=== PATIENT | male | born 1960 | race American Indian/Alaskan Native ===

== ENCOUNTER 2017-05-10 16:39 | Emergency (ER) | payer MEDICARE ==
--- NOTE | 2017-05-10 23:35 | Emergency Department Report ---
ED General Adult HPI - General Chief complaint: Shoulder Injury Stated complaint: LEFT SIDE NUMBNESS Time Seen by Provider: 05/10/17 23:17 Source: patient Mode of arrival: Ambulatory Limitations: No Limitations - History of Present Illness Initial comments: Patient reports that he has left facial numbness for 2-3 days. Unable to close his eyes on the left side and also pain in left shoulder 3-4 days. No injury. He said he moved the mattress prior to his pain. Pain is 2 out of 10 and comes and goes and achy. He also noted that he has some facial drooping. Denies any headache, dizziness, nausea or vomiting. Denies any history of stroke. Denies any weakness to extremities. Denies any neck pain or back pain. Patient has a history of hypertension and GERD and his primary care physician is Dr. 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 He denies any chest pain or shortness of breath. Patient is hard of hearing with hearing aid. No medication taken [id number]. MD Complaint: facial droop pain, numbness and shoulder pain Onset/Timin -: days(s) Location: face, left, upper extremity Radiation: non-radiation Severity scale (0 -10): 2 Quality: aching Consistency: intermittent Improves with: immobilization (left shoulder) Worsens with: movement Associated Symptoms: other (left facial numbness, drooping and ability to close left eye.). denies: confusion, chest pain, cough, diaphoresis, fever/chills, headaches, loss of appetite, malaise, nausea/vomiting, rash, seizure, shortness of breath, syncope, weakness Treatments Prior to Arrival: none - Related Data Home Medications Medication Instructions Recorded Confirmed Last Taken Omeprazole [PriLOSEC] 40 mg PO QDAY 04/21/14 06/19/15 04/27/14 10:00 azaTHIOprine 50 mg PO QDAY 06/13/15 06/19/15 3 Weeks Ago ~05/23/15 10MG predniSONE [Deltasone] 10 mg PO QDAY 06/13/15 06/19/15 3 Weeks Ago ~05/23/15 Previous Rx's Medication Instructions Recorded Last Taken Type Warfarin [Coumadin] 10 mg PO QDAY #30 tablet 06/16/15 06/19/15 Rx Metolazone 5 mg PO 2XW #8 tablet 06/26/15 Unknown Rx Potassium Chloride [K-Dur] 20 meq PO QDAY #30 tablet 06/26/15 Unknown Rx Sotalol [Betapace] 80 mg PO Q12HR #60 tablet 06/26/15 Unknown Rx Torsemide [Demadex] 40 mg PO QDAY #30 tab 06/26/15 Unknown Rx Prednisone [predniSONE 5 mg (6-Day 5 mg PO .TAPER 6 Days #1 tab.ds.pk 05/11/17 Unknown Rx Pack, 21 Tabs)] Valacyclovir HCl [Valtrex] 1,000 mg PO Q8H 7 Days #21 tablet 05/11/17 Unknown Rx Allergies Allergy/AdvReac Type Severity Reaction Status Date / Time No Known Allergies Allergy Verified 05/10/17 16:44 ED Review of Systems ROS: Stated complaint: LEFT SIDE NUMBNESS Other details as noted in HPI Comment: All other systems reviewed and negative Constitutional: no symptoms reported ENT: other (facial numbness.). denies: ear pain, throat pain, dental pain, epistaxis, congestion Respiratory: no symptoms reported Cardiovascular: denies: chest pain, palpitations, dyspnea on exertion, edema, syncope, paroxysmal nocturnal dyspnea Gastrointestinal: denies: abdominal pain, nausea, vomiting, diarrhea, constipation, hematemesis, melena, hematochezia Genitourinary: denies: urgency, dysuria Musculoskeletal: arthralgia. denies: back pain, joint swelling, myalgia Skin: denies: rash Neurological: numbness. denies: headache, weakness, paresthesias, confusion, abnormal gait, vertigo ED Past Medical Hx - Past Medical History Previous Medical History?: Yes Hx Hypertension: Yes (FOR 6 YRS, DR. 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[facility]) ) Hx GERD: Yes Hx Liver Disease: No Hx Renal Disease: No Hx Seizures: No Hx Asthma: No Additional medical history: Nonspecific Interstitial pneumonia, pulmonary HTN - Surgical History Past Surgical History?: No - Family History Family history: hypertension - Social History Smoking Status: Never Smoker Substance Use Type: None - Medications Home Medications: Home Medications Medication Instructions Recorded Confirmed Last Taken Type Omeprazole [PriLOSEC] 40 mg PO QDAY 04/21/14 06/19/15 04/27/14 10:00 History azaTHIOprine 50 mg PO QDAY 06/13/15 06/19/15 3 Weeks Ago History ~05/23/15 10MG predniSONE [Deltasone] 10 mg PO QDAY 06/13/15 06/19/15 3 Weeks Ago History ~05/23/15 Warfarin [Coumadin] 10 mg PO QDAY #30 tablet 06/16/15 06/19/15 06/19/15 Rx Metolazone 5 mg PO 2XW #8 tablet 06/26/15 Unknown Rx Potassium Chloride [K-Dur] 20 meq PO QDAY #30 tablet 06/26/15 Unknown Rx Sotalol [Betapace] 80 mg PO Q12HR #60 tablet 06/26/15 Unknown Rx Torsemide [Demadex] 40 mg PO QDAY #30 tab 06/26/15 Unknown Rx Prednisone [predniSONE 5 mg (6-Day 5 mg PO .TAPER 6 Days #1 tab.ds.pk 05/11/17 Unknown Rx Pack, 21 Tabs)] Valacyclovir HCl [Valtrex] 1,000 mg PO Q8H 7 Days #21 tablet 05/11/17 Unknown Rx ED Physical Exam - General Limitations: No Limitations General appearance: alert, in no apparent distress - Head Head exam: Present: atraumatic, normocephalic, normal inspection - Eye Eye exam: Present: normal appearance, PERRL, EOMI, other (patient unable to close left eye). Absent: periorbital swelling, periorbital tenderness Pupils: Present: normal accommodation - Expanded Eye Exam Expanded Eyelids: Normal Inspection: Right (left eyelid, unable to blink.) Pupils: Regular, Round: Bilateral Sclera/Conjunctival: Normal Inspection: Bilateral Anterior chamber: Normal Inspection: Bilateral Posterior chamber: Normal Inspection: Bilateral Visual acuity (R) = 20/: 30 (20/30 both eyes) Visual acuity (L) = 20/: 30 With correction: No - ENT ENT exam: Present: normal orophraynx, mucous membranes moist, TM's normal bilaterally, normal external ear exam, other (decrease in sensation to left face. Decrease in movement to left face) - Neck Neck exam: Present: normal inspection, tenderness, full ROM, other (no C-spine tenderness). Absent: meningismus, lymphadenopathy, thyromegaly - Respiratory Respiratory exam: Present: normal lung sounds bilaterally. Absent: respiratory distress, chest wall tenderness - Cardiovascular Cardiovascular Exam: Present: regular rate, normal rhythm, normal heart sounds. Absent: systolic murmur, diastolic murmur - GI/Abdominal GI/Abdominal exam: Present: soft, normal bowel sounds. Absent: distended, tenderness, guarding, rebound, rigid, organomegaly, mass, bruit, pulsatile mass , hernia - Extremities Exam Extremities exam: Present: normal inspection, full ROM, normal capillary refill , other (no clubbing, cyanosis or edema. +2 pulses all extremities. No neurovascular compromise.bilateral shoulder normal exam. +5 strength in all extremities. No contusion, crepitus or effusion to joints.). Absent: tenderness, pedal edema, joint swelling, calf tenderness - Back Exam Back exam: Present: normal inspection, full ROM, other (ambulates without any difficulties). Absent: tenderness, CVA tenderness (R), CVA tenderness (L), muscle spasm, paraspinal tenderness, vertebral tenderness, rash noted - Neurological Exam Neurological exam: Present: alert, oriented X3, normal gait, motor sensory deficit (crease in sensory and motor movement to left facial area), reflexes normal, other (patient unable to close left eye. Speech is clear but positive facial drooping on the left. Tongue is normal, patient able to manage his secretions. Oral airways patent) - Expanded Neurological Exam Expanded Neurological exam: Absent: innattentive, memory loss-remote event, memory loss- recent event, ataxia, receptive aphasia, expressive aphasia, total aphasia, tremor, protecting the airway Patient oriented to: Present: person, place, time Speech: Present: fluid speech Cranial nerves: EOM's Intact: Normal, Gag Reflex: Normal, Tongue Deviation: Normal, Facial Sensation: Abnormal Left, Facial Palsy without Forehead Movement : Abnormal Left Cerebellar function: Romberg: Normal Upper motor neuron: Pronator Drift: Normal, Sensory Extinction: Normal Sensory exam: Upper Extremity Light Touch: Normal, Upper Extremity Pin Prick: Normal, Upper Extremity Temperature: Normal, UE 2 Point Discrimination: Normal, Lower Extremity Light Touch: Normal, Lower Extremity Pin Prick: Normal, Lower Extremity Temperature: Normal, LE 2 Point Discrimination: Normal Motor strength exam: RUE: 5, LUE: 5, RLE: 5, LLE: 5 DTR: bicep (R): 2+, bicep (L): 2+, tricep (R): 2+, tricep (L): 2+, knee (R): 2+ , knee (L): 2+, ankle (R): 2+, ankle (L): 2+ Best Eye Response (Tisha): (4) open spontaneously Best Motor Response (Tisha): (6) obeys commands Best Verbal Response (Tisha): (5) oriented [place] Total: 15 ED Course Vital Signs 05/10/17 16:44 Temperature 98.8 F Pulse Rate 85 Respiratory 18 Rate Blood Pressure 155/83 O2 Sat by Pulse 97 Oximetry - Reevaluation(s) Reevaluation #1: 05/11/17 00:54 Patient given Solu-Medrol 125 mg IM and Valtrex 1 g by mouth prior to discharge. ED Medical Decision Making - Radiology Data Radiology results: report reviewed CT scan of the head reveals no acute intracranial findings. - Medical Decision Making ED course: Patient here reports that he has had 2-3 days history of facial numbness and drooping. Physical findings for left facial droop, clear speech and no compromise and oral airway. Patient unable to close his left eye and with decreased motor and sensory movement to the facial area. He has left facial palsy and unable to move his left forehead. The findings with negative intracranial abnormalities. Patient will balance palsy. I discussed this case with Dr. Bishop and was agreed upon the patient can be discharged on oral steroids and antiviral. I discussed the diagnosis and treatment plan with patient and he voiced understanding. Patient given Valtrex 1 g and Solu-Medrol 125 mg in emergency room. Discharged home in stable condition with prescription for Valtrex, artificial tears, eye patch and Medrol Dosepak and to follow up with his primary care physician in 2 days and follow-up with neurology. Critical care attestation.: If time is entered above; I have spent that time in minutes in the direct care of this critically ill patient, excluding procedure time. ED Disposition Clinical Impression: Facial nerve palsy, Gallo's palsy, Arthralgia of left shoulder region Lagophthalmos of left eye Qualifiers: Lagophthalmos type: unspecified type Eyelid: unspecified eyelid Qualified Code( s): H02.206 - Unspecified lagophthalmos left eye, unspecified eyelid Disposition: - TO HOME OR SELFCARE Is pt being admited?: No Does the pt Need Aspirin: No Condition: Stable Instructions: Gallo Palsy (ED), Paresthesia (ED), Arthralgia (ED) Additional Instructions: Please use artificial tears every 4 hours to instill in the left eye to prevent dryness. wear eye patch as instructed Follow-up with your primary care physician in 2 days Follow Up with neurologist as instructed Please let you tube cutter and your primary care physician know that you're started on Valtrex and steroid for Gallo's palsy See printed information given to you from up-to-date on Gallo's palsy. Prescriptions: Prednisone [predniSONE 5 mg (6-Day Pack, 21 Tabs)] 5 mg PO .TAPER 6 Days #1 tab.ds.pk Valacyclovir HCl [Valtrex] 1,000 mg PO Q8H 7 Days #21 tablet Referrals: SHALOM SOUSA MD [Referring] - 05/12/17 PEDRO RIZZO MD [Staff Physician] - 05/12/17 MADELIN GOMES MD [Staff Physician] - 05/12/17
--- NOTE | 2017-05-11 00:13 | Cat Scan Report ---
FINAL REPORT EXAM: CT HEAD/BRAIN WO CON HISTORY: lt facial drooping,numbness TECHNIQUE: Noncontrast CT axial images of the brain. PRIORS: None. FINDINGS: No parenchymal mass, mass effect, hemorrhage, midline shift or hydrocephalus. No evidence of acute cortical infarct. No abnormal, extra-axial fluid or air collection. 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 Remainder of osseous calvarium grossly intact. IMPRESSION: 1. No acute intracranial findings.
[2017-05-11] MEDS ORDERED: VALTREX PO ONE (00:34)
[2017-05-11 04:43] VITALS: BP 149/78
== END 2017-05-11 01:15 | disposition home or self-care (01) ==
LOC: ED 16:39
DX: G51.0 Bell's palsy (principal); M25.512 Pain in left shoulder; H02.206 Unspecified lagophthalmos left eye, unspecified eyelid; I10 Essential (primary) hypertension; G43.909 Migraine, unspecified, not intractable, without status migrainosus
CPT/HCPCS: 70450; 96372; 99283; J2930